=== PATIENT | female | born 1930 | race Caucasian/White ===

== ENCOUNTER 2017-10-26 09:19 | Emergency (ER) | payer OTHER ==
[~2017-10-26] VITALS: Ht 177.8 cm; Wt 64.0 kg
[2017-10-26 09:29] VITALS: Ht 177.8 cm; Wt 64.0 kg
--- NOTE | 2017-10-26 10:16 | DIAGNOSTIC IMAGING REPORT ---
L KNEE 1 OR 2 VIEWS ROUTINE CLINICAL HISTORY: 86 years-old Female presenting with left knee eval for fx. TECHNIQUE: Frontal and crosstable lateral views of the left knee were obtained. COMPARISON: None. FINDINGS: Two pin and [id number] cerclage wire fixation of the patella in place. No gross evidence of patellar subluxation. Prominent enthesophyte at the insertion of the quadriceps tendon. Small enthesophyte at the origin of the patellar tendon. No large knee joint effusion. Osteopenia noted. This limits evaluation for nondisplaced fracture. Mild medial joint space loss. Mild osteophytosis in the patellofemoral compartment. IMPRESSION: 1. Internal fixation of the patella. 2. 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 3. Osteopenia. 4. No acute osseous injury is apparent. Electronically signed by: Wilfredo Bernal M.D. 10/26/2017 10:14 AM Dictated Date/Time: 10/26/2017 10:13 AM
[2017-10-26] MEDS ORDERED: WARF3TAB PO (10:32)
[2017-10-26] MEDS ORDERED: LEVO100T PO (10:32)
[2017-10-26] MEDS ORDERED: PROP10TA7 PO (10:32)
[2017-10-26] MEDS ORDERED: WARF2TAB PO (10:32)
[2017-10-26 10:42] VITALS: BP 133/80; PULSE 95; TEMP 36.6; O2SAT 96
--- NOTE | 2017-10-26 15:40 | EMERGENCY ROOM VISIT NOTE ---
History Report prepared by Boogie: Drea Mast Under the Supervision of: Dr. Corby Montague M.D. 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 She reports she had a hip operation 10 months ago and has been favoring her left knee since then. She states she went down a step last night and fell on her bottom and her knee pain worsened. She did not fall onto the knee or directly impact it. She denies hitting her head or neck. Standing up is a worsening factor for her pain and sitting down eliminates her knee pain. The patient reports she has a "very large hemorrhoid" but denies any significant back pain. 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 She scratched her right eye due to allergies. She denies any pain or discharge or visual changes. Review of Systems See HPI for pertinent positives & negatives. A total of 6 systems reviewed and were otherwise negative. Past Medical & Surgical Surgical Problems: (1) History of repair of left hip joint Family History Patient reports no known family medical history. Social History Smoking Status: Never Smoker Smokeless Tobacco Use: Unknown Housing Status: lives with family Occupation Status: retired Current/Historical Medications Scheduled Levothyroxine Sodium (Synthroid), 100 MCG PO QAM Propranolol (Inderal), 10 MG PO BID Warfarin Sodium (Coumadin), 2 MG PO [id number] Warfarin Sodium (Coumadin), 3 MG PO WK Physical Exam Vital Signs Date Time Temp Pulse Resp B/P (MAP) Pulse Ox O2 Delivery O2 Flow Rate FiO2 10/26/17 10:42 36.6 95 20 133/80 96 10/26/17 09:29 36.6 74 20 133/80 95 Room Air Physical Exam Constitutional: Vital signs reviewed. Eyes: Pupils are equal round reactive to light. Right lateral conjunctiva slightly injected. No discharge. No fluorescein uptake right eye. Respiratory: Clear to auscultation bilaterally. Breath sounds are equal bilaterally. Cardiovascular: Regular rate and rhythm. No rubs or gallops. Musculoskeletal: No midline tenderness to the cervical or lumbar spine. No left hip tenderness. Mild tenderness to the left knee diffusely without deformity, joint laxity, or evidence of effusion. No calf tenderness. Bilateral ankle edema. Integumentary: No cyanosis. Neurological: The patient is awake and alert. No focal deficits. Psychiatric: Normal affect. Medical Decision & Procedures ER Provider Diagnostic Interpretation: Radiology results as stated below per my review and the radiologist's interpretation: L KNEE 1 OR 2 VIEWS ROUTINE CLINICAL HISTORY: 86 years-old Female presenting with left knee eval for fx. TECHNIQUE: Frontal and crosstable lateral views of the left knee were obtained. COMPARISON: None. FINDINGS: Two pin and woqkkq-[id number] cerclage wire fixation of the patella in place. No gross evidence of patellar subluxation. Prominent enthesophyte at the insertion of the quadriceps tendon. Small enthesophyte at the origin of the patellar tendon. No large knee joint effusion. Osteopenia noted. This limits evaluation for nondisplaced fracture. Mild medial joint space loss. Mild osteophytosis in the patellofemoral compartment. IMPRESSION: 1. Internal fixation of the patella. 2. 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 3. Osteopenia. 4. No acute osseous injury is apparent. Electronically signed by: Wilfredo Bernal M.D. 10/26/2017 10:14 AM ED Course 0936: The patient was evaluated in room A4. A complete history and physical exam was performed. 1025: I informed the patient of her test results at this time I did a fluorescein exam on her eye. It showed no uptake. 1026: Upon reevaluation, the patient appeared to have improvement of her symptoms. I discussed tonight's findings with her. She verbalized agreement of the treatment plan. She was discharged home. Medical Decision This is an 86-year-old female presents with an injury to her left knee. Differential diagnosis includes strain, pathologic fracture, ligamentous injury , meniscal tear. I did perform a limited focused review of portions of the patient's old chart on the electronic medical record. The patient has had no prior visits to this hospital. I did evaluate the patient as noted above. Patient has been having trouble with her left knee since her hip operation 10 months ago. Yesterday she fell onto her buttocks and stated that the knee pain has worsened. There are no signs of infection or effusion. She has mild diffuse tenderness to the knee without joint laxity. I did order and personally review the patient's knee x- rays as described above. There is no evidence of acute fracture. Her hardware is in place. She has mild conjunctival injection to the right eye without signs of corneal abrasion or infection. The patient was informed of her test results. She was given an Jay wrap and advised to follow-up with her doctor. She was discharged in good condition. Medication Reconcilliation Current Medication List: was personally reviewed by me Blood Pressure Screening Patient's blood pressure: Elevated blood pressure Blood pressure disposition: Referred to PCP Impression Primary Impression: Knee pain Additional Impressions: Fall Conjunctival injection Scribe Attestation The scribe's documentation has been prepared under my direct and personally reviewed by me in its entirety. I confirm that the note above accurately reflects all work, treatment, procedures, and medical decision making performed by me. Departure Information Dispostion Home / Self-Care Referrals No Doctor, Assigned (PCP) Forms HOME CARE DOCUMENTATION FORM, IMPORTANT VISIT INFORMATION Patient Instructions [facility] Additional Instructions You have been examined and treated today on an emergency basis only. This is not a substitute for, or an effort to provide, complete comprehensive medical care. It is impossible to recognize and treat all injuries or illnesses in a single emergency department visit. It is therefore important that you follow up closely with your physician or orthopedist. Call as soon as possible for an appointment. Return for worsening symptoms or if you develop inability to bear weight, redness or significant swelling to the knee or any other concerning symptoms. Problem Qualifiers Primary Impression: Knee pain Chronicity: unspecified Laterality: right Qualified Codes: M25.561 - Pain in right knee Additional Impressions: Fall Encounter type: initial encounter Qualified Codes: W19.XXXA - Unspecified fall, initial encounter Conjunctival injection Laterality: right Qualified Codes: H11.431 - Conjunctival hyperemia, right eye
== END 2017-10-26 10:45 | disposition home or self-care (01) ==
LOC: C.EDB 09:21 → C.EDA 10:45
DX: M25.562 Pain in left knee (principal); W10.9XXA Fall (on) (from) unspecified stairs and steps, initial encounter; H11.431 Conjunctival hyperemia, right eye; R60.0 Localized edema; Z98.890 Other specified postprocedural states; Z79.899 Other long term (current) drug therapy; Z79.01 Long term (current) use of anticoagulants